=== PATIENT | male | born 1990 | race Caucasian/White ===

== ENCOUNTER 2017-07-12 16:15 | Inpatient (IN) ==
[2017-07-12] MEDS ORDERED: 0.9 % Sodium Chloride 1,000 ML IVC ONE ×2 (16:37→20:51)
[2017-07-12] MEDS ORDERED: Ondansetron 4 MG/2 ML VIAL IVP ONE (16:37)
[2017-07-12 16:56] LABS: Basophils % 0.2 %; Eosinophils % 0.1 %; Hematocrit 50.4 % (37.5-50.1); Hemoglobin 17.5 g/dL (12.9-16.9); Immature Granulocytes % 0.3 % (0-4); Lymphocytes # 0.5 K/mcL (0.6-4.6); Lymphocytes % 2.8 %; Mean Corpuscular HGB Conc 34.7 g/dL (31.6-35.5); Mean Corpuscular Hemoglobin 30.7 pg (28.0-33.3); Mean Corpuscular Volume 88.4 fL (83.0-100.0); Mean Platelet Volume 9.1 fL (9.4-12.4); Neutrophils # 14.7 K/mcL (1.6-8.9); Platelet Count 355 K/mcL (140-400); Red Cell Distribution Width 12.5 % (11.5-14.5); Segmented Neutrophils % 90.6 %
--- NOTE | 2017-07-12 17:01 | Emergency Department Note ---
Disposition Clinical Impression: Bowel obstruction Disposition: Admitted As Inpatient Condition: Fair Referrals: NONE,PCP [Primary Care Provider] - Forms: ED Satisfaction Letter, Work/School Release Time of Disposition: 20:56 Abdominal Pain HPI - General Chief Complaint: ED Abdominal Pain Stated Complaint: abdominal pain Time Seen by Provider: 07/12/17 16:31 Source: patient, family Nursing Notes Reviewed: Yes Vital Signs Reviewed: Yes - History of Present Illness HPI Narrative: Patient is a 26-year-old male with past medical history of Crohn's disease that presents for abdominal pain along with nausea and vomiting. Symptoms began this morning around 4 AM. He says his abdominal pain is located in the epigastric region, is nonradiating, intermittent, sharp in nature, and rates the pain as an 8 out of 10 at its worst. He said the pain is made worse with food and liquids. Patient denies any hematemesis. He denies any diarrhea, melena, or hematochezia. He admits to subjective fever along with chills. She denies any shortness of breath. He denies any recent travel. She denies any sick contacts at home. He denies any chest pain and says that she has shortness of breath only when his pain is at his worst. She denies any new medications. Denies any recent hospitalizations. Patient says that his last Crohn's flare up was 7-8 years ago. He says that he has not been taking his 6- mercaptopurine medication for the past 2 months. Pain Scale: 8 - Related Data Allergies Allergy/AdvReac Type Severity Reaction Status Date / Time infliximab [From Remicade] Allergy Anaphylaxis Verified 07/12/17 16:16 Constitutional: Reports: fever, chills. Denies: weakness Cardiovascular: Denies: chest pain, palpitations, dyspnea on exertion, edema, syncope Respiratory: Denies: cough, dyspnea, wheezes, hemoptysis, stridor Gastrointestinal: Reports: abdominal pain, nausea, vomiting, constipation (No BM today only. ). Denies: diarrhea, hematemesis, melena, hematochezia Genitourinary: Denies: urgency, dysuria, frequency, hematuria Abdominal Pain PMH - Past Medical History Medical history: Reports: other Male Surgical History: Reports: no surgical history Psychiatric history: Reports: no psych history - Social History Smoking status: Never smoker Alcohol use: Reports: none Drug use: Reports: none Physical Exam - General Limitations: no limitations General appearance: alert, in no apparent distress - Chest Chest inspection: Present: normal inspection, symmetric chest wall rise - Respiratory Respiratory exam: Present: normal lung sounds bilaterally. Absent: respiratory distress, wheezes, stridor - Cardiovascular Cardiovascular exam: Present: regular rate, normal rhythm, normal heart sounds, +S1, +S2. Absent: +S3, +S4 - Abdominal Exam Abdominal exam: Present: soft, tenderness, normal bowel sounds. Absent: distention, guarding, rebound, rigidity, Savage's sign, Rovsing's sign, tenderness at McBurney's Point Abdominal tenderness: Present: RUQ, RLQ, LUQ, LLQ, epigastrium - Extremities Exam Extremities exam: Present: normal inspection, full ROM, normal capillary refill. Absent: tenderness, pedal edema, calf tenderness Course Course Narrative: Patient appears to be dehydrated due to frequent vomiting. We will start him on fluid bolus. We will try to rule out pancreatitis, cholecystitis, appendicitis. Differential also includes viral gastroenteritis and crohns flare- up. Update 07/12/172038: Leukocytosis at 16.3. Patient is afebrile. Lipase was low making pancreatitis unlikely. Lactic acid was normal making infection less likely. Abdominal CT with contrast was done which showed possible obstruction to terminal ileum. Spoke to Dr. Maldonado from surgery who agreed to evaluate the patient. We are currently putting an NG tube for bowel decompression. Spoke to hospitalist Dr. Estrada who agreed to admit the patient. Abdomen/Pelvis CT 07/12/17 19:45 IMPRESSION: 1. Narrowing, thickening and inflammatory changes involving the terminal ileum over approximately 10 cm. No fistula. The findings are consistent with the patient's clinical history of Crohn's. Small bowel obstruction proximal to the involved segment with multiple distended fluid-filled small bowel loops. Small amount of ascites with interloop fluid collections. No free air. 2. There is a 1.3 x 1.7 cm fluid collection adjacent to the involved portion of the terminal ileum may represent a small abscess. 3. Colonic wall thickening with submucosal fat and very mild pericolonic inflammatory changes. D/ / 07/12/2017 20:12:07 Kamaljit Jc MD / Sarahi Cha Interpreting Provider: Kamaljit Jc MD Vital Signs Temperature 97.4 F L 07/12/17 16:17 Pulse Rate 119 07/12/17 16:17 Respiratory Rate 18 07/12/17 16:17 Blood Pressure 140/104 07/12/17 16:17 O2 Sat by Pulse Oximetry 99 07/12/17 16:17 Temperature 97.4 F L 07/12/17 16:17 Pulse Rate 134 07/12/17 20:46 Respiratory Rate 15 07/12/17 20:46 Blood Pressure 148/111 07/12/17 20:46 O2 Sat by Pulse Oximetry 98 07/12/17 20:46 Oxygen Delivery Oxygen Delivery Room Air Abdominal Pain - Lab Data Result diagrams: 07/12/17 16:47 07/12/17 16:47 Lab Results 07/12/17 07/12/17 07/12/17 Range/Units 16:47 16:47 16:47 WBC 16.3 H (4.3-11.1) K/mcL RBC 5.70 H (4.19-5.50) M/mcL Hgb 17.5 H (12.9-16.9) g/dL Hct 50.4 H (37.5-50.1) % MCV 88.4 (83.0-100.0) fL MCH 30.7 (28.0-33.3) pg MCHC 34.7 (31.6-35.5) g/dL RDW 12.5 (11.5-14.5) % Plt Count 355 (140-400) K/mcL MPV 9.1 L (9.4-12.4) fL Immature Gran % 0.3 (0-4) % Seg Neutrophils % 90.6 % Lymphocytes % 2.8 % Monocytes % 6.0 % Eosinophils % 0.1 % Basophils % 0.2 % Neutrophils # 14.7 H (1.6-8.9) K/mcL Lymphocytes # 0.5 L (0.6-4.6) K/mcL Monocytes # 1.0 (0.0-1.3) K/mcL Eosinophils # 0.0 (0.0-0.6) K/mcL Basophils # 0.0 (0.0-0.2) K/mcL Sodium 134 L (136-145) mEq/L Potassium 3.8 (3.5-5.1) mEq/L Chloride 98 (98-107) mEq/L Carbon Dioxide 25 (23-29) mEq/L BUN 14 (6-20) mg/dL Creatinine 1.11 (0.70-1.30) mg/dL Est GFR ( Amer) > 60 (> 60) Est GFR (Non-Af Amer) > 60 (> 60) BUN/Creatinine Ratio 13 (6-26) Glucose 126 H (70-105) mg/dL Calculated Osmolality 280 (280-300) Lactic Acid 1.2 (0.5-2.2) mmol/L Calcium 9.8 (8.6-10.3) mg/dL Total Bilirubin 1.1 H (0.3-1.0) mg/dL AST 30 (13-39) Units/L ALT 44 (7-52) Units/L Alkaline Phosphatase 105 H (34-104) Units/L Serum Total Protein 8.3 (6.4-8.9) g/dL Albumin 4.6 (3.5-5.7) g/dL Globulin 3.7 H (2.4-3.5) g/dL Albumin/Globulin Ratio 1.2 (1.1-2.2) Lipase 7 L (11-82) Units/L Urine Color (Yellow) Urine Clarity (Clear) Urine pH (5.0-8.0) pH Units Ur Specific [place] (1.010-1.025) Urine Protein (Neg-Trace) mg/dL Urine Glucose (UA) (Normal) mg/dL Urine Ketones (Negative) mg/dL Urine Blood (Negative) Urine Nitrite (Negative) Urine Bilirubin (Negative) Urine Urobilinogen (Normal) mg/dL Ur Leukocyte Esterase (Negative) Urine Microscopic RBC (0-3) per hpf Urine Microscopic WBC (0-3) per hpf Ur Squamous Epith Cells (None-Few) per lpf Urine Bacteria (None-Few) per hpf Hyaline Casts (None-Few) per lpf Ur Culture Indicated? (NO) 07/12/17 Range/Units 17:41 WBC (4.3-11.1) K/mcL RBC (4.19-5.50) M/mcL Hgb (12.9-16.9) g/dL Hct (37.5-50.1) % MCV (83.0-100.0) fL MCH (28.0-33.3) pg MCHC (31.6-35.5) g/dL RDW (11.5-14.5) % Plt Count (140-400) K/mcL MPV (9.4-12.4) fL Immature Gran % (0-4) % Seg Neutrophils % % Lymphocytes % % Monocytes % % Eosinophils % % Basophils % % Neutrophils # (1.6-8.9) K/mcL Lymphocytes # (0.6-4.6) K/mcL Monocytes # (0.0-1.3) K/mcL Eosinophils # (0.0-0.6) K/mcL Basophils # (0.0-0.2) K/mcL Sodium (136-145) mEq/L Potassium (3.5-5.1) mEq/L Chloride (98-107) mEq/L Carbon Dioxide (23-29) mEq/L BUN (6-20) mg/dL Creatinine (0.70-1.30) mg/dL Est GFR ( Amer) (> 60) Est GFR (Non-Af Amer) (> 60) BUN/Creatinine Ratio (6-26) Glucose (70-105) mg/dL Calculated Osmolality (280-300) Lactic Acid (0.5-2.2) mmol/L Calcium (8.6-10.3) mg/dL Total Bilirubin (0.3-1.0) mg/dL AST (13-39) Units/L ALT (7-52) Units/L Alkaline Phosphatase (34-104) Units/L Serum Total Protein (6.4-8.9) g/dL Albumin (3.5-5.7) g/dL Globulin (2.4-3.5) g/dL Albumin/Globulin Ratio (1.1-2.2) Lipase (11-82) Units/L Urine Color Dark Yellow (Yellow) Urine Clarity Clear (Clear) Urine pH 6.0 (5.0-8.0) pH Units Ur Specific [place] > 1.030 H (1.010-1.025) Urine Protein 100 H (Neg-Trace) mg/dL Urine Glucose (UA) Normal (Normal) mg/dL Urine Ketones >=160 H (Negative) mg/dL Urine Blood Trace H (Negative) Urine Nitrite Negative (Negative) Urine Bilirubin Small H (Negative) Urine Urobilinogen Normal (Normal) mg/dL Ur Leukocyte Esterase Negative (Negative) Urine Microscopic RBC 5-15 H (0-3) per hpf Urine Microscopic WBC 0-3 (0-3) per hpf Ur Squamous Epith Cells Many H (None-Few) per lpf Urine Bacteria None Seen (None-Few) per hpf Hyaline Casts None Seen (None-Few) per lpf Ur Culture Indicated? NO (NO) - Radiology Data Radiology results reviewed: Yes I reviewed the patient's radiology results.
[2017-07-12 17:18] LABS: Alanine Aminotransferase 44 Units/L (7-52); Albumin 4.6 g/dL (3.5-5.7); Albumin/Globulin Ratio 1.2 (1.1-2.2); Alkaline Phosphatase 105 Units/L (34-104); Aspartate Amino Transferase 30 Units/L (13-39); BUN/Creatinine Ratio 13 (6-26); Bilirubin,Total 1.1 mg/dL (0.3-1.0); Blood Urea Nitrogen 14 mg/dL (6-20); Calcium 9.8 mg/dL (8.6-10.3); Carbon Dioxide 25 mEq/L (23-29); Chloride 98 mEq/L (98-107); Globulin 3.7 g/dL (2.4-3.5); Glucose 126 mg/dL (70-105); Lipase 7 Units/L (11-82); Osmolality,Calculated 280 (280-300); Potassium 3.8 mEq/L (3.5-5.1); Sodium 134 mEq/L (136-145); Total Protein 8.3 g/dL (6.4-8.9); eGFR For African Americans > 60 (> 60); eGFR For Non-African Americans > 60 (> 60)
[2017-07-12 17:51] LABS: Bilirubin,Urine Small (Negative); Blood,Urine Trace (Negative); Clarity,Urine Clear (Clear); Color,Urine Dark Yellow (Yellow); Glucose,Urine (UA) Normal (Normal); Ketones,Urine >=160 mg/dL (Negative); Leukocyte Esterase,Urine Negative (Negative); Nitrite,Urine Negative (Negative); Protein,Urine 100 mg/dL (Neg-Trace); Specific Gravity,Urine > 1.030 (1.010-1.025); Urobilinogen,Urine Normal (Normal)
[2017-07-12 17:54] LABS: Bacteria,Urine None Seen per hpf (None-Few); Hyaline Casts,Urine None Seen per lpf (None-Few); Squamous Epithelial Cell,Urine Many per lpf (None-Few); WBC,Urine 0-3 per hpf (0-3)
[2017-07-12] MEDS ORDERED: Isovue-370 500 ML INFUS..BTL IV ONE (18:07)
[2017-07-12] MEDS ORDERED: Tetracaine/Benzocaine/Butamben 200MG/SPRAY (100SPY/BOT) MM ONE (19:52)
[2017-07-12] MEDS ORDERED: Lidocaine Viscous Oral Soln 15 ML SOLUTION MM PRN (19:52)
[2017-07-12] MEDS ORDERED: Oxymetazoline Nasal SPRAY BOTTLE NS ONE (19:52)
[2017-07-12] MEDS ORDERED: *HR* FentaNYL (PF) 100 MCG/2 ML VIAL IVP ONE (19:52)
--- NOTE | 2017-07-12 21:34 | Emergency Department Note ---
Disposition Clinical Impression: Bowel obstruction Qualifiers: Intestinal obstruction type: unspecified Intestinal obstruction extent: unspecified extent Qualified Code(s): K56.609 - Unspecified intestinal obstruction, unspecified as to partial versus complete obstruction Crohn's disease Qualifiers: Gastrointestinal tract location: small intestine Digestive disease complication type: with intestinal obstruction Qualified Code(s): K50.012 - Crohn's disease of small intestine with intestinal obstruction Disposition: Admitted As Inpatient Condition: Fair Referrals: NONE,PCP [Primary Care Provider] - Forms: ED Satisfaction Letter, Work/School Release Time of Disposition: 22:12 General Adult HPI - General Chief complaint: ED Abdominal Pain Stated complaint: abdominal pain Time Seen by Provider: 07/12/17 16:31 Source: patient, family Limitations: no limitations - History of Present Illness Pain Scale: 8 - Related Data Allergies Allergy/AdvReac Type Severity Reaction Status Date / Time infliximab [From Remicade] Allergy Anaphylaxis Verified 07/12/17 16:16 Constitutional: Reports: fever, chills. Denies: weakness Cardiovascular: Denies: chest pain, palpitations, dyspnea on exertion, edema, syncope Respiratory: Denies: cough, dyspnea, wheezes, hemoptysis, stridor Gastrointestinal: Reports: abdominal pain, nausea, vomiting, constipation (No BM today only. ). Denies: diarrhea, hematemesis, melena, hematochezia Genitourinary: Denies: urgency, dysuria, frequency, hematuria Past Medical History - Past Medical History Medical history: Reports: other Psychiatric history: Reports: no psych history - Social History Smoking Status: Never smoker Smokeless Tobacco Status: No Alcohol use: Reports: none Drug use: Reports: none Physical Exam - General Limitations: no limitations General appearance: alert, in no apparent distress Course Vital Signs Temperature 97.4 F L 07/12/17 16:17 Pulse Rate 119 07/12/17 16:17 Respiratory Rate 18 07/12/17 16:17 Blood Pressure 140/104 07/12/17 16:17 O2 Sat by Pulse Oximetry 99 07/12/17 16:17 Temperature 97.4 F L 07/12/17 16:17 Pulse Rate 132 07/12/17 21:48 Respiratory Rate 18 07/12/17 21:48 Blood Pressure 131/92 07/12/17 21:48 O2 Sat by Pulse Oximetry 95 07/12/17 21:48 Oxygen Delivery Oxygen Delivery Room Air Medical Decision Making - Lab Data Result diagrams: 07/12/17 16:47 07/12/17 16:47 Lab Results 07/12/17 07/12/17 07/12/17 Range/Units 16:47 16:47 16:47 WBC 16.3 H (4.3-11.1) K/mcL RBC 5.70 H (4.19-5.50) M/mcL Hgb 17.5 H (12.9-16.9) g/dL Hct 50.4 H (37.5-50.1) % MCV 88.4 (83.0-100.0) fL MCH 30.7 (28.0-33.3) pg MCHC 34.7 (31.6-35.5) g/dL RDW 12.5 (11.5-14.5) % Plt Count 355 (140-400) K/mcL MPV 9.1 L (9.4-12.4) fL Immature Gran % 0.3 (0-4) % Seg Neutrophils % 90.6 % Lymphocytes % 2.8 % Monocytes % 6.0 % Eosinophils % 0.1 % Basophils % 0.2 % Neutrophils # 14.7 H (1.6-8.9) K/mcL Lymphocytes # 0.5 L (0.6-4.6) K/mcL Monocytes # 1.0 (0.0-1.3) K/mcL Eosinophils # 0.0 (0.0-0.6) K/mcL Basophils # 0.0 (0.0-0.2) K/mcL Sodium 134 L (136-145) mEq/L Potassium 3.8 (3.5-5.1) mEq/L Chloride 98 (98-107) mEq/L Carbon Dioxide 25 (23-29) mEq/L BUN 14 (6-20) mg/dL Creatinine 1.11 (0.70-1.30) mg/dL Est GFR ( Amer) > 60 (> 60) Est GFR (Non-Af Amer) > 60 (> 60) BUN/Creatinine Ratio 13 (6-26) Glucose 126 H (70-105) mg/dL Calculated Osmolality 280 (280-300) Lactic Acid 1.2 (0.5-2.2) mmol/L Calcium 9.8 (8.6-10.3) mg/dL Total Bilirubin 1.1 H (0.3-1.0) mg/dL AST 30 (13-39) Units/L ALT 44 (7-52) Units/L Alkaline Phosphatase 105 H (34-104) Units/L Serum Total Protein 8.3 (6.4-8.9) g/dL Albumin 4.6 (3.5-5.7) g/dL Globulin 3.7 H (2.4-3.5) g/dL Albumin/Globulin Ratio 1.2 (1.1-2.2) Lipase 7 L (11-82) Units/L Urine Color (Yellow) Urine Clarity (Clear) Urine pH (5.0-8.0) pH Units Ur Specific [place] (1.010-1.025) Urine Protein (Neg-Trace) mg/dL Urine Glucose (UA) (Normal) mg/dL Urine Ketones (Negative) mg/dL Urine Blood (Negative) Urine Nitrite (Negative) Urine Bilirubin (Negative) Urine Urobilinogen (Normal) mg/dL Ur Leukocyte Esterase (Negative) Urine Microscopic RBC (0-3) per hpf Urine Microscopic WBC (0-3) per hpf Ur Squamous Epith Cells (None-Few) per lpf Urine Bacteria (None-Few) per hpf Hyaline Casts (None-Few) per lpf Ur Culture Indicated? (NO) 07/12/17 Range/Units 17:41 WBC (4.3-11.1) K/mcL RBC (4.19-5.50) M/mcL Hgb (12.9-16.9) g/dL Hct (37.5-50.1) % MCV (83.0-100.0) fL MCH (28.0-33.3) pg MCHC (31.6-35.5) g/dL RDW (11.5-14.5) % Plt Count (140-400) K/mcL MPV (9.4-12.4) fL Immature Gran % (0-4) % Seg Neutrophils % % Lymphocytes % % Monocytes % % Eosinophils % % Basophils % % Neutrophils # (1.6-8.9) K/mcL Lymphocytes # (0.6-4.6) K/mcL Monocytes # (0.0-1.3) K/mcL Eosinophils # (0.0-0.6) K/mcL Basophils # (0.0-0.2) K/mcL Sodium (136-145) mEq/L Potassium (3.5-5.1) mEq/L Chloride (98-107) mEq/L Carbon Dioxide (23-29) mEq/L BUN (6-20) mg/dL Creatinine (0.70-1.30) mg/dL Est GFR ( Amer) (> 60) Est GFR (Non-Af Amer) (> 60) BUN/Creatinine Ratio (6-26) Glucose (70-105) mg/dL Calculated Osmolality (280-300) Lactic Acid (0.5-2.2) mmol/L Calcium (8.6-10.3) mg/dL Total Bilirubin (0.3-1.0) mg/dL AST (13-39) Units/L ALT (7-52) Units/L Alkaline Phosphatase (34-104) Units/L Serum Total Protein (6.4-8.9) g/dL Albumin (3.5-5.7) g/dL Globulin (2.4-3.5) g/dL Albumin/Globulin Ratio (1.1-2.2) Lipase (11-82) Units/L Urine Color Dark Yellow (Yellow) Urine Clarity Clear (Clear) Urine pH 6.0 (5.0-8.0) pH Units Ur Specific [place] > 1.030 H (1.010-1.025) Urine Protein 100 H (Neg-Trace) mg/dL Urine Glucose (UA) Normal (Normal) mg/dL Urine Ketones >=160 H (Negative) mg/dL Urine Blood Trace H (Negative) Urine Nitrite Negative (Negative) Urine Bilirubin Small H (Negative) Urine Urobilinogen Normal (Normal) mg/dL Ur Leukocyte Esterase Negative (Negative) Urine Microscopic RBC 5-15 H (0-3) per hpf Urine Microscopic WBC 0-3 (0-3) per hpf Ur Squamous Epith Cells Many H (None-Few) per lpf Urine Bacteria None Seen (None-Few) per hpf Hyaline Casts None Seen (None-Few) per lpf Ur Culture Indicated? NO (NO) Attestation Statement - Attestation Attestation: I examined this patient and my medical decision-making was reviewed with the Resident Physician. I agree with the documented findings, disposition and treatment plan as described except to the extent set forth below. 26-year-old male with history of Crohn's since the ED because of abdominal pain and vomiting. Symptoms have been evolving for the past couple days with abdominal bloating and nausea. No diarrhea. No fevers. No chest pain or dyspnea. No flank or back pain. Was not male in no apparent physiologic distress. Oropharynx is clear mucous membranes are dry. Neck supple. Chest is clear to auscultation bilaterally. Abdomen bowel sounds are present throughout. Abdomen is slightly distended and moderate tenderness to the upper abdomen. No rebound tenderness. No flank tenderness. He has leukocytosis with a white count 16,000. Electrolytes are unremarkable. CT of the abdomen consistent with a small bowel obstruction with moderate gastric distention as well. NG tube was placed and during placement he vomited about 800 mL of fluid. NG tube was in place for about 40 minutes and placement was confirmed by chest x- ray. However, there was very little drainage From This and This Was Creating A Lot Of Discomfort, Gagging and Vomiting so It Was Removed. Case was discussed with on-call surgeon Dr. Gu who will see him in consultation. He is admitted to medical service.
[2017-07-12] MEDS ORDERED: Ondansetron 4 MG/2 ML VIAL IVP PRN (21:50)
[2017-07-12] MEDS ORDERED: OXYCODONE Oral CONC 10 MG/0.5 ML ORAL.SYG SL PRN ×2 (21:50)
[2017-07-12] MEDS ORDERED: Naloxone 0.4 MG/ML INJ IVP PRN (21:50)
[2017-07-12] MEDS ORDERED: Piperacillin/Tazobactam 3.375 GM in 0.9 % Sodium Chloride Mini Bag 100 ML IVPB ONE (21:58)
--- NOTE | 2017-07-12 22:02 | Internal Med History&Physical ---
Date of Encounter: 07/12/17 Time of Encounter: 22:31 Internal Medicine - H&P: HPI Chief complaint: Abdominal pain Admitted From: Home Plans for Post Hospital Care: Home History of present illness: Mr. Jose is a 26 year old male past medical history of Crohn's disease diagnosed 10 years ago. He presented to the ER with complains of epigastric and RLQ abdominal pain along with nausea and vomiting. Symptoms began this morning, pain is non- radiating, intermittent, sharp in nature, colicky, 8/10 at onset (relieved at time of review) He said the pain is made worse with food and liquids. Patient denies any hematemesis. He denies any diarrhea, melena, or hematochezia. There is associated subjective fevers and chills. The patient reports his last bowel movement was the day, was normal. He denies chest pain, shortness of breath, leg swelling, no neurologic symptoms. No change in urinary habits. The patient reports anaphylaxis to Remicade several years ago, and has not been compliant with his immunosuppressive medication for a couple of months. His last colonoscopy was 10 years ago when he was diagnosed. Workup in the ER-tachycardic, dehydrated, Terminal myelitis with abscess and small bowel obstruction lipase was normal, lactic acid was normal patient had leukocytosis. NG tube placed in the ER drained 800 mL of GI evaluation, was removed due to patient discomfort. At time of review, he was comfortable and in no form of acute distress. Past Med Surg Social Fam HX - Past Medical History Medical history: other Psychiatric history: no psych history - Past Surgical History Surgical History: no surgical history - Social History Smoking Status: Never smoker Smokeless Tobacco Status: No Alcohol use: none Drug use: none Internal Medicine - H&P: Meds 3 Allergy/AdvReac Type Severity Reaction Status Date / Time infliximab [From Remicade] Allergy Anaphylaxis Verified 07/12/17 16:16 All Systems PM: A 10-system review of systems was performed and is negative for pertinent findings except as documented above in the HPI. - Constitutional Constitutional: as per HPI - EENT Eyes: as per HPI Ears: as per HPI Nose, mouth and throat: as per HPI - Cardiovascular Cardiovascular ROS IM: as per HPI - Respiratory Respiratory: as per HPI - Gastrointestinal Gastrointestinal: as per HPI - Musculoskeletal Musculoskeletal ROS IM: as per HPI - Integumentary Integumentary IM: as per HPI - Hematologic/Lymphatic Hematologic/Lymphatic: as per HPI - Constitutional Vitals: Temp Pulse Resp BP Pulse Ox 97.4 F L 132 18 131/92 95 07/12/17 16:17 07/12/17 21:48 07/12/17 21:48 07/12/17 21:48 07/12/17 21:48 General appearance: Present: A&O X 3, pleasant, no acute distress - Head Head exam: Present: atraumatic, normocephalic - Eye Eye exam: Present: PERRL, conjuntiva pink, sclera anicteric Pupils: Present: PERRL - Neck Neck exam general surgery: Present: supple, trachea midline. Absent: lymphadenopathy - Respiratory Respiratory exam: Present: CTAB. Absent: accessory muscle use, rales, rhonchi, wheezes - Cardiovascular Cardiovascular exam: Present: +S1, +S2, tachycardia (regular). Absent: diastolic murmur, gallop, rubs, systolic murmur - GI/Abdominal GI/Abdominal exam: Present: soft, no peritoneal signs. Absent: distended, guarding, normal bowel sounds, rebound, tenderness Additional comments: Bowel sounds are absent - Extremities Exam Extremities exam: Present: warm, radial pulses palpable and symmetrical. Absent : calf tenderness, cyanotic, pedal edema - Neurological Exam Neurological exam: Present: alert, CN II-XII intact, oriented X3, no focal deficits. Absent: pronater drift, facial droop, speech deficit - Skin Skin exam: Present: dry, intact Internal Med - H&P Results - Labs CBC & Chem 7: 07/12/17 16:47 07/12/17 16:47 Labs: Short CBC 07/12/17 Range/Units 16:47 WBC 16.3 H (4.3-11.1) K/mcL Hgb 17.5 H (12.9-16.9) g/dL Hct 50.4 H (37.5-50.1) % Plt Count 355 (140-400) K/mcL Neutrophils # 14.7 H (1.6-8.9) K/mcL BMP 07/12/17 16:47 Sodium 134 L Potassium 3.8 Chloride 98 Carbon Dioxide 25 BUN 14 Creatinine 1.11 Glucose 126 H Calcium 9.8 Liver Function 07/12/17 Range/Units 16:47 Total Bilirubin 1.1 H (0.3-1.0) mg/dL AST 30 (13-39) Units/L ALT 44 (7-52) Units/L Alkaline Phosphatase 105 H (34-104) Units/L Albumin 4.6 (3.5-5.7) g/dL Urine 07/12/17 Range/Units 17:41 Urine Color Dark Yellow (Yellow) Urine Clarity Clear (Clear) Urine pH 6.0 (5.0-8.0) pH Units Ur Specific [place] > 1.030 H (1.010-1.025) Urine Protein 100 H (Neg-Trace) mg/dL Urine Glucose (UA) Normal (Normal) mg/dL - Impressions ITS Impressions Abdomen/Pelvis CT 07/12/17 19:45 IMPRESSION: 1. Narrowing, thickening and inflammatory changes involving the terminal ileum over approximately 10 cm. No fistula. The findings are consistent with the patient's clinical history of Crohn's. Small bowel obstruction proximal to the involved segment with multiple distended fluid-filled small bowel loops. Small amount of ascites with interloop fluid collections. No free air. 2. There is a 1.3 x 1.7 cm fluid collection adjacent to the involved portion of the terminal ileum may represent a small abscess. 3. Colonic wall thickening with submucosal fat and very mild pericolonic inflammatory changes. D/ / 07/12/2017 20:12:07 Kamaljit Jc MD / Sarahi Cha Interpreting Provider: Kamaljit Jc MD KUB X-Ray 07/12/17 20:59 IMPRESSION: NG tube in place with tip in the region of the gastric antrum and side port in the body of the stomach D/ / Dale Montiel MD / Dale Montiel MD Interpreting Provider: Dale Montiel MD - Assessment and plan (1) Sepsis Current Visit: Yes Status: Acute Assessment and plan: see below Met sepsis criteria with tachycardia HR 120-140, Leukocytosis of 16,000 and crohn's ileitis with abscess Blood culture requested Lactate is normal Source of sepsis is intra-abdominal Start on Zosyn Hemodynamically stable continue iVF hydration Qualifiers: Sepsis type: sepsis due to unspecified organism Qualified Code(s): A41.9 - Sepsis, unspecified organism (2) Crohn's ileitis Current Visit: Yes Status: Acute Assessment and plan: Known hx of crohn's disease presented with acute onset abdominal pain, fever/ chills, nausea, vomiting Per ER, non-compliance with 6MP home med for several months CT findings: Narrowing, thickening and inflammatory changes involving the terminal ileum over approximately 10 cm. No fistula. The findings are consistent with the patient's clinical history of Crohn's. Small bowel obstruction proximal to the involved segment with multiple distended fluid- filled small bowel loops. Small amount of ascites with interloop fluid collections. No free air. There is a 1.3 x 1.7 cm fluid collection adjacent to the involved portion of the terminal ileum may represent a small abscess, and Colonic wall thickening with submucosal fat and very mild pericolonic inflammatory changes *Absent bowel sounds on exam, no rebound, no guarding *Solumedrol 125mg once, followed by 60mg q6hr *Consider Budesonide when patient starts to take po *NPO *NG tube was placed initially, removed by ER physician *Patent's abdomen is not acute, will hold off on NG placement for now *Pain control *IV Zosyn for broader coverage, as patient is septic *Presence of abscess collection without pneumperitoneum, small bowel obstruction -Surgery has been consulted *Routine GI evaluation prior to discharge *High risk condition with risk of rapid deterioration/gut perforation and peritonitis Qualifiers: Digestive disease complication type: with intestinal obstruction Qualified Code(s): K50.012 - Crohn's disease of small intestine with intestinal obstruction (3) Terminal ileitis with abscess Current Visit: Yes Status: Acute Assessment and plan: as above (4) Bowel obstruction Current Visit: Yes Status: Acute Assessment and plan: NPO IVF hydration Strict I/Os Serial abdominal exams Surgery-Dr. Snell has been consulted by the ED team Qualifiers: Intestinal obstruction type: unspecified Intestinal obstruction extent: unspecified extent Qualified Code(s): K56.609 - Unspecified intestinal obstruction, unspecified as to partial versus complete obstruction - Time Spent With Patient Total time spent is greater than 50% in coordination of care (as documented) at patient's floor/unit and/or counseling patient:
[2017-07-12] MEDS ORDERED: methylPREDNISolone 125 MG/2 ML VIAL IVP ONE (22:15)
[2017-07-13] MEDS: 0.9 % Sodium Chloride 1,000 ML IVC SCH ×2 (00:47→13:40)
[2017-07-13] MEDS: *HR* Enoxaparin 40 MG/0.4 ML SYRINGE SQ SCH (05:35)
[2017-07-13] MEDS: Piperacillin/Tazobactam 3.375 GM in 0.9 % Sodium Chloride Mini Bag 100 ML IVPB SCH ×3 (05:35→23:11)
[2017-07-13] MEDS: methylPREDNISolone 125 MG/2 ML VIAL IVP SCH ×3 (05:36→20:31)
[2017-07-13 06:41] LABS: Basophils % 0.2 %; Hematocrit 42.6 % (37.5-50.1); Immature Granulocytes % 0.3 % (0-4); Lymphocytes # 0.5 K/mcL (0.6-4.6); Lymphocytes % 5.6 %; Mean Corpuscular HGB Conc 34.5 g/dL (31.6-35.5); Mean Corpuscular Hemoglobin 30.6 pg (28.0-33.3); Mean Corpuscular Volume 88.8 fL (83.0-100.0); Mean Platelet Volume 9.2 fL (9.4-12.4); Monocytes # 0.1 K/mcL (0.0-1.3); Monocytes % 1.3 %; Platelet Count 316 K/mcL (140-400); Red Cell Distribution Width 12.9 % (11.5-14.5); Segmented Neutrophils % 92.6 %
[2017-07-13 06:42] LABS: Hemoglobin 14.7 g/dL (12.9-16.9)
[2017-07-13 06:59] LABS: BUN/Creatinine Ratio 15 (6-26); Blood Urea Nitrogen 15 mg/dL (6-20); Calcium 8.7 mg/dL (8.6-10.3); Carbon Dioxide 24 mEq/L (23-29); Chloride 107 mEq/L (98-107); Glucose 156 mg/dL (70-105); Magnesium 2.1 mg/dL (1.6-2.6); Osmolality,Calculated 288 (280-300); Potassium 4.1 mEq/L (3.5-5.1); Sodium 137 mEq/L (136-145); eGFR For African Americans > 60 (> 60); eGFR For Non-African Americans > 60 (> 60)
--- NOTE | 2017-07-13 11:15 | General Surgery Consult Note ---
<PernelldamasoJaylon - Last Filed: 07/13/17 16:31> Date of Encounter: 07/13/17 Time of Encounter: 09:45 Assessment and Plan (1) Terminal ileitis with abscess Current Visit: Yes Status: Acute Abscess on CT scan only measuring 1.3 x 1.7 cm secondary to crohn's ileitus. No necessary for surgical or IR intervention at this time. continue ABx od steroid per primary team and GI. (2) Bowel obstruction Current Visit: Yes Status: Acute Patient present with obstruction no BM since day before admission. Pain improved. Pt had a BM this morning after initial rounding. agree with advancement to clear liquid diet no need for intervention as obstruction has resolved. Qualifiers: Intestinal obstruction type: unspecified Intestinal obstruction extent: unspecified extent Qualified Code(s): K56.609 - Unspecified intestinal obstruction, unspecified as to partial versus complete obstruction (3) Crohn's disease Current Visit: Yes Status: Acute Patient with known hx of crohn's disease. Patient will need follow up with local GI for out patient management of crohn's Patient will need follow up colonoscopy GI on board. Qualifiers: Gastrointestinal tract location: small intestine Digestive disease complication type: with intestinal obstruction Qualified Code(s): K50.012 - Crohn's disease of small intestine with intestinal obstruction (4) Sepsis Current Visit: Yes Status: Acute Sepsis criteria based on WBC and tachycardia ileitus with abscess on CT scan WBC improved, tachycardia resolved, patient afebrile. continue abx and management per primary team. Qualifiers: Sepsis type: sepsis due to unspecified organism Qualified Code(s): A41.9 - Sepsis, unspecified organism History of Present Illness Consult date: 07/12/17 Reason for consult: abdominal pain (SBO 2/2 Crohn's Colitis, concern for possible abscess.) Requesting physician: Topher Nair History of present illness: 26 yo M c PMHx of Crohn's disease diagnosed aproximately 10 years ago eports to [facility] for 1 day of sharp intermittent epigastric and RLQ abdominal pain. Patient had nausea and vomiting yesterday. Pain was worse with eating and drinking. Patient deneis fever, Diarrhea, blood in vomit or stool. Pt's last colonoscopy was at diagnosis. LBM was day before admission. Patient received care for his Crohn's in [place]re he recently moved from. Pt was on mercaptopurine and was in process of tapering down on med but began to forget to take it more and more often. Has not taken for last 3 months. Pt has nto had a flare like this before since diagnosis. Pt had anaphylactic reaction to remicaide. Patient was found to be dehydrated, tachycardic, and Hypertensive upon presentation. Labs were notable for WBC 16.3, nl BMP, total bili 1.1, normal AST and ALT, ALk phos 105. normal protien and albumin. LA 1.[address] abd pelvis which showed: "1. Narrowing, thickening and inflammatory changes involving the terminal ileum over approximately 10 cm. No fistula. The findings are consistent with the patient's clinical history of Crohn's. Small bowel obstruction proximal to the involved segment with multiple distended fluid-filled small bowel loops. Small amount of ascites with interloop fluid collections. No free air. 2. There is a 1.3 x 1.7 cm fluid collection adjacent to the involved portion of the terminal ileum may represent a small abscess. 3. Colonic wall thickening with submucosal fat and very mild pericolonic inflammatory changes." Patient had NG tube placed in the ED, but was subsequently pulled do to patient discomfort, improvement of symptoms. Patient was started on Steroids, IV zosyn, IV hydration, oxycodone HCL oral concentrate for pain control Today patient feels much better. He hasn't passed gas or stool yet, but pain is much better nausea has resolved. Past Med Surg Social Fam HX - Past Medical History Medical history: other Psychiatric history: no psych history - Past Surgical History Surgical History: no surgical history - Social History Smoking Status: Never smoker Smokeless Tobacco Status: No Alcohol use: none Drug use: none Medications and Allergies Mercaptopurine [Purinethol] 50 mg PO DAILY 07/13/17 [History] Multivitamin [Multivitamins] 1 cap PO DAILY 07/13/17 [History] 3 Allergy/AdvReac Type Severity Reaction Status Date / Time infliximab [From Remicade] Allergy Anaphylaxis Verified 07/12/17 16:16 Review of Systems All systems PM: The remainder of the systems were reviewed and are negative General Surgery Exam Initial Vital Signs Temp Pulse Resp BP Pulse Ox 97.4 F L 119 18 140/104 99 07/12/17 16:17 07/12/17 16:17 07/12/17 16:17 07/12/17 16:17 07/12/17 16:17 - General physical appearance well developed, well nourished, no distress - Eyes normal ocular movement - ENT normal mucosa - Neck trachea midline - Respiratory normal expansion, normal respiratory effort, clear to auscultation - Cardiovascular Cardiovascular exam: Present: RRR, no murmurs/rubs/gallops - Abdomen Abdomen general surgery: Present: bowel sounds present (hypoactive), soft, non tender. Absent: distended, guarding, rebound - Integumentary Integumentary general surgery: Present: warm and dry, no abnormal pigmentation - Neurologic Present: CN 2-12 grossly intact - Musculoskeletal Present: normal posture - Psychiatric Psychiatric general surgery: Present: A&Ox3, appropriate, speech is normal, memory intact Exam Initial Vital Signs Temp Pulse Resp BP Pulse Ox 97.4 F L 119 18 140/104 99 07/12/17 16:17 07/12/17 16:17 07/12/17 16:17 07/12/17 16:17 07/12/17 16:17 Results - Labs 07/13/17 06:31 07/13/17 06:31 Abnormal lab results MPV 9.2 fL (9.4-12.4) L 07/13/17 06:31 Neutrophils # 9.0 K/mcL (1.6-8.9) H 07/13/17 06:31 Lymphocytes # 0.5 K/mcL (0.6-4.6) L 07/13/17 06:31 Glucose 156 mg/dL (70-105) H 07/13/17 06:31 POC Glucose 125 mg/dL (70-99) H 07/13/17 05:33 Total Bilirubin 1.1 mg/dL (0.3-1.0) H 07/12/17 16:47 Alkaline Phosphatase 105 Units/L (34-104) H 07/12/17 16:47 Globulin 3.7 g/dL (2.4-3.5) H 07/12/17 16:47 Lipase 7 Units/L (11-82) L 07/12/17 16:47 Ur Specific [place] > 1.030 (1.010-1.025) H 07/12/17 17:41 Urine Protein 100 mg/dL (Neg-Trace) H 07/12/17 17:41 Urine Ketones >=160 mg/dL (Negative) H 07/12/17 17:41 Urine Blood Trace (Negative) H 07/12/17 17:41 Urine Bilirubin Small (Negative) H 07/12/17 17:41 Urine Microscopic RBC 5-15 per hpf (0-3) H 07/12/17 17:41 Ur Squamous Epith Cells Many per lpf (None-Few) H 07/12/17 17:41 Diabetes panel 07/13/17 Range/Units 06:31 Sodium 137 (136-145) mEq/L Potassium 4.1 (3.5-5.1) mEq/L Chloride 107 (98-107) mEq/L Carbon Dioxide 24 (23-29) mEq/L BUN 15 (6-20) mg/dL Creatinine 0.98 (0.70-1.30) mg/dL Glucose 156 H (70-105) mg/dL Calcium 8.7 (8.6-10.3) mg/dL Calcium panel 07/13/17 Range/Units 06:31 Calcium 8.7 (8.6-10.3) mg/dL Pituitary panel 07/13/17 Range/Units 06:31 Sodium 137 (136-145) mEq/L Potassium 4.1 (3.5-5.1) mEq/L Chloride 107 (98-107) mEq/L Carbon Dioxide 24 (23-29) mEq/L BUN 15 (6-20) mg/dL Creatinine 0.98 (0.70-1.30) mg/dL Glucose 156 H (70-105) mg/dL Calcium 8.7 (8.6-10.3) mg/dL Adrenal panel 07/13/17 Range/Units 06:31 Sodium 137 (136-145) mEq/L Potassium 4.1 (3.5-5.1) mEq/L Chloride 107 (98-107) mEq/L Carbon Dioxide 24 (23-29) mEq/L BUN 15 (6-20) mg/dL Creatinine 0.98 (0.70-1.30) mg/dL Glucose 156 H (70-105) mg/dL Calcium 8.7 (8.6-10.3) mg/dL All other labs normal. Consult Discharge Plan - Plan Referrals: NONE,PCP [Primary Care Provider] - <Jaxson Gu - Last Filed: 07/13/17 17:06> Date of Encounter: 07/13/17 Review of Systems All systems PM: The remainder of the systems were reviewed and are negative General Surgery Exam Initial Vital Signs Temp Pulse Resp BP Pulse Ox 97.4 F L 119 18 140/104 99 07/12/17 16:17 07/12/17 16:17 07/12/17 16:17 07/12/17 16:17 07/12/17 16:17 Exam Initial Vital Signs Temp Pulse Resp BP Pulse Ox 97.4 F L 119 18 140/104 99 07/12/17 16:17 07/12/17 16:17 07/12/17 16:17 07/12/17 16:17 07/12/17 16:17 Results - Labs 07/13/17 06:31 07/13/17 06:31 Abnormal lab results MPV 9.2 fL (9.4-12.4) L 07/13/17 06:31 Neutrophils # 9.0 K/mcL (1.6-8.9) H 07/13/17 06:31 Lymphocytes # 0.5 K/mcL (0.6-4.6) L 07/13/17 06:31 Glucose 156 mg/dL (70-105) H 07/13/17 06:31 POC Glucose 120 mg/dL (70-99) H 07/13/17 11:18 Total Bilirubin 1.1 mg/dL (0.3-1.0) H 07/12/17 16:47 Alkaline Phosphatase 105 Units/L (34-104) H 07/12/17 16:47 Globulin 3.7 g/dL (2.4-3.5) H 07/12/17 16:47 Lipase 7 Units/L (11-82) L 07/12/17 16:47 Ur Specific [place] > 1.030 (1.010-1.025) H 07/12/17 17:41 Urine Protein 100 mg/dL (Neg-Trace) H 07/12/17 17:41 Urine Ketones >=160 mg/dL (Negative) H 07/12/17 17:41 Urine Blood Trace (Negative) H 07/12/17 17:41 Urine Bilirubin Small (Negative) H 07/12/17 17:41 Urine Microscopic RBC 5-15 per hpf (0-3) H 07/12/17 17:41 Ur Squamous Epith Cells Many per lpf (None-Few) H 07/12/17 17:41 Diabetes panel 07/13/17 Range/Units 06:31 Sodium 137 (136-145) mEq/L Potassium 4.1 (3.5-5.1) mEq/L Chloride 107 (98-107) mEq/L Carbon Dioxide 24 (23-29) mEq/L BUN 15 (6-20) mg/dL Creatinine 0.98 (0.70-1.30) mg/dL Glucose 156 H (70-105) mg/dL Calcium 8.7 (8.6-10.3) mg/dL Calcium panel 07/13/17 Range/Units 06:31 Calcium 8.7 (8.6-10.3) mg/dL Pituitary panel 07/13/17 Range/Units 06:31 Sodium 137 (136-145) mEq/L Potassium 4.1 (3.5-5.1) mEq/L Chloride 107 (98-107) mEq/L Carbon Dioxide 24 (23-29) mEq/L BUN 15 (6-20) mg/dL Creatinine 0.98 (0.70-1.30) mg/dL Glucose 156 H (70-105) mg/dL Calcium 8.7 (8.6-10.3) mg/dL Adrenal panel 07/13/17 Range/Units 06:31 Sodium 137 (136-145) mEq/L Potassium 4.1 (3.5-5.1) mEq/L Chloride 107 (98-107) mEq/L Carbon Dioxide 24 (23-29) mEq/L BUN 15 (6-20) mg/dL Creatinine 0.98 (0.70-1.30) mg/dL Glucose 156 H (70-105) mg/dL Calcium 8.7 (8.6-10.3) mg/dL All other labs normal. - Attending Attestation I have personally seen and examined the patient. I have reviewed pertinent labs , imaging, progress notes, including this one. I agree with the above assessment and plan and wish to include the following... 26M h/o Crohn's now with flare with associated obstruction and abscess; currently HDS, non septic; minimal pain on exam; recommend consult to GI for management of Crohn's; will also need c-scopy; can be done as outpt; no acute surgery;
--- NOTE | 2017-07-13 13:09 | Internal Med Progress Note ---
Date of Encounter: 07/13/17 Time of Encounter: 11:30 - Assessment and plan (1) Sepsis Current Visit: Yes Status: Acute Assessment and plan: Met sepsis criteria with tachycardia HR 120-140, Leukocytosis of 16,000 and crohn's ileitis with abscess Blood culture - P cont empirical abx Zosyn Cont IVF hydration Qualifiers: Sepsis type: sepsis due to unspecified organism Qualified Code(s): A41.9 - Sepsis, unspecified organism (2) Bowel obstruction Current Visit: Yes Status: Acute Assessment and plan: Cont NPO off the NG tube Had BM this morning will check with surgery to start pt on ice chips / sips of water today IVF hydration Strict I/Os Qualifiers: Intestinal obstruction type: unspecified Intestinal obstruction extent: unspecified extent Qualified Code(s): K56.609 - Unspecified intestinal obstruction, unspecified as to partial versus complete obstruction (3) Crohn's ileitis Current Visit: Yes Status: Acute Assessment and plan: Improving cont empirical abx Zosyn Since his abd pain improved will cut back on steroids GI on board Qualifiers: Digestive disease complication type: with intestinal obstruction Qualified Code(s): K50.012 - Crohn's disease of small intestine with intestinal obstruction (4) Terminal ileitis with abscess Current Visit: Yes Status: Acute Assessment and plan: Reviewed CT of Abd - small fluid collection around the terminal ileum area Concerned for abscess cont empirical abx surgery on board - Time Spent With Patient Total time spent is greater than 50% in coordination of care (as documented) at patient's floor/unit and/or counseling patient: - Subjective Interval history: Mr. Jose is a 26 year old male past medical history of Crohn's disease diagnosed when he was 17 y/o, currently on Mercaptopurine and immuno suppressive therapu, who did not have any flare ups with in last 10 yrs, follows at [facility] now presented to our ER with complains of epigastric and RLQ abdominal pain along with nausea and vomiting. His CT of Abd showed terminal ileitis, small bowel obstruction and a small fluid collection 1.3 x 1.7 cm around terminal ileum area. Pt is off the NG tube. He denied any more abdominal pain. Had loose watery BM today. - Constitutional Vitals: Temp Pulse Resp BP Pulse Ox 98.1 F 86 16 116/72 97 07/13/17 11:12 07/13/17 11:12 07/13/17 11:12 07/13/17 11:12 07/13/17 11:12 General appearance: Present: A&O X 3, pleasant, no acute distress - Head Head exam: Present: atraumatic, normal inspection - Neck Neck exam general surgery: Present: supple - Respiratory Respiratory exam: Present: CTAB. Absent: respiratory distress, rhonchi, wheezes - Cardiovascular Cardiovascular exam: Present: RRR, +S1, +S2. Absent: systolic murmur - GI/Abdominal GI/Abdominal exam: Present: hypoactive bowel sounds, soft. Absent: distended, rebound, rigid, tenderness - Extremities Exam Extremities exam: Absent: calf tenderness, pedal edema, tenderness - Back Exam Back exam: Absent: CVA tenderness (L), CVA tenderness (R) - Psychiatric Psychiatric exam: Present: normal affect, normal mood Internal Medicine: Result - Labs CBC & Chem 7: 07/13/17 06:31 07/13/17 06:31 Labs: Short CBC 07/13/17 Range/Units 06:31 WBC 9.7 (4.3-11.1) K/mcL Hgb 14.7 D (12.9-16.9) g/dL Hct 42.6 (37.5-50.1) % Plt Count 316 (140-400) K/mcL Neutrophils # 9.0 H (1.6-8.9) K/mcL BMP 07/13/17 06:31 Sodium 137 Potassium 4.1 Chloride 107 Carbon Dioxide 24 BUN 15 Creatinine 0.98 Glucose 156 H Calcium 8.7 Consult Discharge Plan - Plan Referrals: NONE,PCP [Primary Care Provider] -
[2017-07-14] MEDS: *HR* Enoxaparin 40 MG/0.4 ML SYRINGE SQ SCH (06:12)
[2017-07-14] MEDS: Piperacillin/Tazobactam 3.375 GM in 0.9 % Sodium Chloride Mini Bag 100 ML IVPB SCH (06:14)
[2017-07-14] MEDS: methylPREDNISolone 125 MG/2 ML VIAL IVP SCH (07:16)
--- NOTE | 2017-07-14 11:48 | Discharge Summary ---
<Jeffrey Diana - Last Filed: 07/14/17 14:00> - NOTES TO OUTPATIENT PROVIDER Notes to Outpatient Provider: Patient reportedly stopped taking all medications because he felt better. This was restarted on this admission. Date of Encounter: 07/14/17 Time of Encounter: 10:00 - Discharge Diagnosis (1) Bowel obstruction Priority: Secondary Status: Acute Assessment and Plan: Resolved Qualifiers: Intestinal obstruction type: unspecified Intestinal obstruction extent: unspecified extent Qualified Code(s): K56.609 - Unspecified intestinal obstruction, unspecified as to partial versus complete obstruction (2) Sepsis Priority: Secondary Status: Acute Assessment and Plan: Met sepsis criteria with tachycardia HR 120-140, Leukocytosis of 16,000 and crohn's ileitis with abscess Blood culture - negative Home course of Cipro, Flagyl Tolerating oral diet Qualifiers: Sepsis type: sepsis due to unspecified organism Qualified Code(s): A41.9 - Sepsis, unspecified organism (3) Crohn's ileitis Priority: Primary Status: Acute Assessment and Plan: Improving Continue antibiotics, prednisone Follow-up with GI outpatient Qualifiers: Digestive disease complication type: with intestinal obstruction Qualified Code(s): K50.012 - Crohn's disease of small intestine with intestinal obstruction (4) Terminal ileitis with abscess Priority: Secondary Status: Acute Assessment and Plan: Reviewed CT of Abd - small fluid collection around the terminal ileum area Concerned for abscess cont empirical abx Hospital course: Mr. Jose is a 26 year old male with past medical history of Crohn's disease presents to emergency department with abdominal pain along with nausea and vomiting. He located in epigastric region, sharp in nature and made worse with foods or liquids. He does follow with a exhibits coordinator however approximately 2 months ago he started to wean himself off 6-mercaptopurine as his Crohn's has been well controlled up until this point. He was diagnosed at age 17 is been compliant with medication since. He has not had a recent colonoscopy since diagnosis. In the emergency room, vital signs significant for tachycardia with a rate of 119, otherwise within normal limits. Lab results significant for WBC of 16.3, elevated H/H at 17.5/50.4 consistent with dehydration, otherwise within normal limits including lactic acid 1.2. Abdominal CT showed inflammatory changes in the terminal ileum with small bowel shocks in proximal to this area as well as a 1.3 cm x 1.7 cm fluid collection which might represent a small abscess. He is admitted to medicine service for further evaluation and management of small bowel structured, Crohn's flare. During course hospital stay, patient gradually improved. He was started on Zosyn and methylprednisolone. NG tube was placed and he was hydrated with intravenous fluids. Gastroenterology was consulted during admission as well as surgery. Surgery decided with conservative measures including the NG tube and nothing by mouth diet for small bowel function. As patient's symptoms improve he was able to tolerate a clear liquid diet and then advanced to a soft diet without any further symptoms of nausea, vomiting, pain. NG tube was removed. We did discuss at length the importance of following up with his exhibits coordinator will continue his 6-mercaptopurine until he is able to follow up with his exhibits coordinator. We also discussed taking his diet slowly as couple days and advance as tolerated. He expressed an understanding to this. Lab results return to baseline levels and vital signs are stable. He is medically stable for discharge at this time. - Time Spent with Patient Total time spent providing and/or coordinating discharge services: - Discharge Medications Prescriptions: Ciprofloxacin HCl [Cipro] 500 mg PO BID #14 tablet Mercaptopurine [Purinethol] 50 mg PO DAILY #20 tablet metroNIDAZOLE [Flagyl] 500 mg PO BID #14 tablet predniSONE [PredniSONE] 40 mg PO DAILY #5 tablet Home Medications: Multivitamin [Multivitamins] 1 cap PO DAILY 07/13/17 [History] Ciprofloxacin HCl [Cipro] 500 mg PO BID #14 tablet 07/14/17 [Rx] Mercaptopurine [Purinethol] 50 mg PO DAILY #20 tablet 07/14/17 [Rx] metroNIDAZOLE [Flagyl] 500 mg PO BID #14 tablet 07/14/17 [Rx] predniSONE [PredniSONE] 40 mg PO DAILY #5 tablet 07/14/17 [Rx] Allergies/Adverse Reactions: 3 Allergy/AdvReac Type Severity Reaction Status Date / Time infliximab [From Remicade] Allergy Anaphylaxis Verified 07/12/17 16:16 Date of admission: 07/12/17 22:27 Primary care physician: PCP NONE Consults: 07/13/17 10:50 Consult to Gastroenterology [CONS] Routine Consulting Provider: Gastroenterology Madiha Reason for Consult: Crohn's flare versus bowel obstruction Call Completed: Yes Discharging clinician: Jeffrey Diana Anticipated date of discharge: 07/14/17 - Constitutional Vitals: Temp Pulse Resp BP Pulse Ox 97.9 F 85 15 115/69 97 07/14/17 10:49 07/14/17 10:49 07/14/17 10:49 07/14/17 10:49 07/14/17 10:49 General appearance: Present: A&O X 3, pleasant, no acute distress Exam: Gen.: Vitals noted. No acute distress. AAOx3 HEENT: PERRL/EOMI, oropharynx clear, Normocephalic, atraumatic, MMM Cardiac: RRR, no murmur, +S1/S2 Pulmonary: CTA bilaterally, no wheezes, rales or rhonchi, equal chest expansion Abdomen: soft, nontender, BS noted, no guarding, no rebound. Extremities: no BLE edema, nontender calf, no cyanosis or clubbing Neuro: A&Ox3, moves all extremities, no focal deficits Psych: Appropriate mood and behavior - Patient Status Disposition: Home, Self-Care Condition: Fair Functional capacity at discharge: independent ambulation Overall status at discharge: patient is progressing back to baseline - Discharge Instructions Instructions: Crohn Disease (DC), Bowel Obstruction (DC) Follow Up With: NONE,PCP [Primary Care Provider] - (Patient wishes to find his own primary care physician. Thank you) Additional Instructions: Follow-up appointments: If there is not an appointment listed below, please call your physician and schedule a follow-up appointment. If you have congestive heart failure and your symptoms return, make an appointment with your physician. Medication List: Carry an up to date list of medications you are taking at all time. We have given you an updated medication list including any new medications that you have been prescribed. Please provide that list to your primary provider Symptoms: If your condition changes or you experience any of the following symptoms, notify your physician immediately: Unusual or worsening pain, fever, persistent nausea and vomiting, bleeding, increase in swelling (especially in your legs), sudden weight gain, extreme dizziness, chest pain, increased drainage or redness from a wound or incision. Go to the emergency department if you experience a problem with breathing. Weights: If you have a history of swelling or shortness of breath, weigh yourself daily and notify your physician if you have a weight gain of two or more pounds in one day or 5 or more pounds in a week. If you experience any of the warning signs for stroke: Sudden numbness or weakness of the face, arm or leg; especially on one side of the body, sudden confusion, trouble speaking or understanding, sudden trouble seeing in one or both eyes, sudden trouble walking, dizziness, loss of balance or coordination, sudden sever headache with no cause; Call 911 or go to the emergency room. Stroke is a medical emergency. Some risk factors for stroke: Age, cigarette smoking, diabetes, excessive alcohol consumption, family history , high blood pressure, overweight, physical inactivity, prior stroke, heart attack, diagnosis of carotid artery stenosis or other artery disease. If you smoke, STOP: Smoking or tobacco use significantly increases your risk of heart and lung disease. Your chance of disease greatly increases if you continue to smoke. For more information, call the [employer] quit line for smoking cessation 6-695- QUIT-NOW ( ) - Diet and Activity Activity: increase activity as tolerated, resume usual activities as tolerated Diet: advance to your usual diet <Stephen Yao - Last Filed: 07/14/17 14:59> Date of Encounter: 07/14/17 - Discharge Diagnosis (1) Bowel obstruction Status: Acute Qualifiers: Intestinal obstruction type: unspecified Intestinal obstruction extent: unspecified extent Qualified Code(s): K56.609 - Unspecified intestinal obstruction, unspecified as to partial versus complete obstruction (2) Sepsis Status: Acute Qualifiers: Sepsis type: sepsis due to unspecified organism Qualified Code(s): A41.9 - Sepsis, unspecified organism (3) Crohn's ileitis Status: Acute Qualifiers: Digestive disease complication type: with intestinal obstruction Qualified Code(s): K50.012 - Crohn's disease of small intestine with intestinal obstruction (4) Terminal ileitis with abscess Status: Acute Hospital course: Mr. Jose is a 26 year old male - Time Spent with Patient Total time spent providing and/or coordinating discharge services: Date of admission: 07/12/17 22:27 Primary care physician: PCP NONE Consults: 07/13/17 10:50 Consult to Gastroenterology [CONS] Routine Consulting Provider: Gastroenterology Madiha Reason for Consult: Crohn's flare versus bowel obstruction Call Completed: Yes - Constitutional Vitals: Temp Pulse Resp BP Pulse Ox 97.9 F 85 15 115/69 97 07/14/17 10:49 07/14/17 10:49 07/14/17 10:49 07/14/17 10:49 07/14/17 10:49 - Attending Attestation I examined this patient and my medical decision-making was reviewed with the Resident Physician Dr. Diana. I agree with the documented findings, disposition and treatment plan as described except to the extent set forth below. Mr. Jose is a 26 year old male past medical history of Crohn's disease diagnosed when he was 17 y/o, currently on Mercaptopurine and immuno suppressive therapu, who did not have any flare ups with in last 10 yrs, follows at [facility] now presented to our ER with complains of epigastric and RLQ abdominal pain along with nausea and vomiting. His CT of Abd showed terminal ileitis, small bowel obstruction and a small fluid collection 1.3 x 1.7 cm around terminal ileum area. Pt denied any more abd pain and tolerating PO intake well. Gen: A, A, O x 3 Chest : Diminished BS b/l Abd: Soft, NT + BS+ a/p 1. Sepsis 2. Acute SBO 3. Acute crohn's ileitis 4. ?/ Ileal abscess / fluid collection Pt's symptoms resolved remained afebrile tolerating PO intake well cont PO steroids for another 5 days switched to PO Abx medically stable to d/c home
--- NOTE | 2017-07-14 11:54 | Gastroenterology Consult Note ---
<Debra Knowles - Last Filed: 07/14/17 11:50> Date of Encounter: 07/14/17 Time of Encounter: 10:30 - Assessment and plan (1) Crohn's ileitis Current Visit: Yes Status: Acute Assessment and plan: Pt currently on steroids and antibiotics is symptomatically better. Will follow as an outpatient, need colonoscopy when inflammation decreased. Qualifiers: Digestive disease complication type: with intestinal obstruction Qualified Code(s): K50.012 - Crohn's disease of small intestine with intestinal obstruction (2) Terminal ileitis with abscess Current Visit: Yes Status: Acute Assessment and plan: Seen by Gen surgery for abcess, is small, surgery not recommended. Continue antibiotics, colonoscopy as outpatient. - Time Spent With Patient Total time spent is greater than 50% in coordination of care (as documented) at patient's floor/unit and/or counseling patient: GI History of Present Illness - Data of Consult Patient: new to practice Consult date: 07/14/17 Requesting Physician: Ree Estrada MD - Consult Narrative Reason for consult: crohn's disease History of present illness: 26 yo male with a PMHx of Crohn's disease diagnosed at age [age] year old. He presents to [facility] for 1 day of sharp intermittent epigastric and RLQ abdominal pain. Patient had nausea and vomiting yesterday. Pain was worse with eating and drinking. Patient denies fever, Diarrhea, blood in vomit or stool. Pt's last colonoscopy was at diagnosis. LBM was day before admission. Patient received care for his Crohn's in [place] where he recently moved from. Pt was on mercaptopurine and was in process of tapering down, states he does not take every day, and has not taken in 3 months. He denies any flares or hospitalizations for Crohn's before. Pt had anaphylactic reaction to remicaide. Patient was found to be dehydrated, tachycardic, and Hypertensive upon presentation. CT abd pelvis showed: Narrowing, thickening and inflammatory changes involving the terminal ileum over approximately 10 cm. No fistula. The findings are consistent with the patient's clinical history of Crohn's. Small bowel obstruction proximal to the involved segment with multiple distended fluid-filled small bowel loops. Small amount of ascites with interloop fluid collections. No free air. There is a 1.3 x 1.7 cm fluid collection adjacent to the involved portion of the terminal ileum may represent a small abscess. Colonic wall thickening with submucosal fat and very mild pericolonic inflammatory changes. Patient had NG tube placed in the ED, but was subsequently pulled do to patient discomfort, improvement of symptoms. Patient was started on Steroids, IV zosyn, IV hydration, oxycodone HCL oral concentrate for pain control. He states he is feeling much better. He denies any rectal bleeding. He denies fever or chills. egd denies colon 2007 [place] [facility] NSAIDS none anticoagulants: Lovenox: 0600 Past Med Surg Social Fam HX - Past Medical History Medical history: other Psychiatric history: no psych history - Past Surgical History Surgical History: no surgical history - Social History Smoking Status: Never smoker Smokeless Tobacco Status: No Alcohol use: none Drug use: none Review of Systems: GI: as per [facility] GENERAL: denies fever or chills EYES: denies yellow discoloration ENT: denies pain with swallowing or difficulty swallowing CARDIO: denies chest pain, palpitations RESP: No Shortness of breath with exertion : denies change in color of urine NEURO: denies any weakness HEME: Denies any bruising MS: denies joint pain, joint swelling or back pain. DERM: denies rash or itching PSYCH: Denies history of anxiety or depression - Constitutional Vitals: Temp Pulse Resp BP Pulse Ox 97.9 F 85 15 115/69 97 07/14/17 10:49 07/14/17 10:49 07/14/17 10:49 07/14/17 10:49 07/14/17 10:49 Exam: CONSTITUTIONAL:~alert, no acute distress.~HEAD:~normocephalic.~EYES:~no jaundice.~NECK:~no obvious swelling.~HEART:~regular rate and rhythm, no murmurs. ~LUNGS:~bilateral good air entry.~ABDOMEN:~non distended, soft, mildly tender, no masses palpable, no organomegaly.~RECTAL EXAM:~Deferred.~EXTREMITIES:~no clubbing, cyanosis or edema.~SKIN:~no stigmata of chronic liver disease.~ NEUROLOGIC:~no obvious focal defect.~~~~ Results - Labs CBC & Chem 7: 07/13/17 06:31 07/13/17 06:31 Labs: Last Result Calcium 8.7 mg/dL (8.6-10.3) 07/13/17 06:31 Entire Visit Hgb 14.7 g/dL (12.9-16.9) D 07/13/17 06:31 Hct 42.6 % (37.5-50.1) 07/13/17 06:31 Total Bilirubin 1.1 mg/dL (0.3-1.0) H 07/12/17 16:47 AST 30 Units/L (13-39) 07/12/17 16:47 ALT 44 Units/L (7-52) 07/12/17 16:47 Lipase 7 Units/L (11-82) L 07/12/17 16:47 - Impressions Impressions KUB X-Ray 07/13/17 11:05 IMPRESSION: Slight worsening of proximal small bowel distention over 24 hours. Partial mechanical bowel obstruction is suspected. Nasogastric tube not identified and either removed or retracted into the esophagus. D/ / Fredi Asher MD / Fredi Asher MD Interpreting Provider: Fredi Asher MD Consult Discharge Plan - Plan Instructions: Crohn Disease (DC), Bowel Obstruction (DC) Additional Instructions: Follow-up appointments: If there is not an appointment listed below, please call your physician and schedule a follow-up appointment. If you have congestive heart failure and your symptoms return, make an appointment with your physician. Medication List: Carry an up to date list of medications you are taking at all time. We have given you an updated medication list including any new medications that you have been prescribed. Please provide that list to your primary provider Symptoms: If your condition changes or you experience any of the following symptoms, notify your physician immediately: Unusual or worsening pain, fever, persistent nausea and vomiting, bleeding, increase in swelling (especially in your legs), sudden weight gain, extreme dizziness, chest pain, increased drainage or redness from a wound or incision. Go to the emergency department if you experience a problem with breathing. Weights: If you have a history of swelling or shortness of breath, weigh yourself daily and notify your physician if you have a weight gain of two or more pounds in one day or 5 or more pounds in a week. If you experience any of the warning signs for stroke: Sudden numbness or weakness of the face, arm or leg; especially on one side of the body, sudden confusion, trouble speaking or understanding, sudden trouble seeing in one or both eyes, sudden trouble walking, dizziness, loss of balance or coordination, sudden sever headache with no cause; Call 911 or go to the emergency room. Stroke is a medical emergency. Some risk factors for stroke: Age, cigarette smoking, diabetes, excessive alcohol consumption, family history , high blood pressure, overweight, physical inactivity, prior stroke, heart attack, diagnosis of carotid artery stenosis or other artery disease. If you smoke, STOP: Smoking or tobacco use significantly increases your risk of heart and lung disease. Your chance of disease greatly increases if you continue to smoke. For more information, call the [employer] quit line for smoking cessation 3-108 QUIT-NOW ( ) Referrals: NONE,PCP [Primary Care Provider] - (Patient wishes to find his own primary care physician. Thank you) Prescriptions: Ciprofloxacin HCl [Cipro] 500 mg PO BID #14 tablet Mercaptopurine [Purinethol] 50 mg PO DAILY #20 tablet metroNIDAZOLE [Flagyl] 500 mg PO BID #14 tablet predniSONE [PredniSONE] 40 mg PO DAILY #5 tablet <César Guadalupe - Last Filed: 07/14/17 14:40> Date of Encounter: 07/14/17 Time of Encounter: 13:30 - Time Spent With Patient Total time spent is greater than 50% in coordination of care (as documented) at patient's floor/unit and/or counseling patient: GI History of Present Illness - Data of Consult Requesting Physician: Ree Estrada MD - Consult Narrative History of present illness: Mr. Jose is a 26 year old male - Constitutional Vitals: Temp Pulse Resp BP Pulse Ox 97.9 F 85 15 115/69 97 07/14/17 10:49 07/14/17 10:49 07/14/17 10:49 07/14/17 10:49 07/14/17 10:49 Results - Labs CBC & Chem 7: 07/13/17 06:31 07/13/17 06:31 Labs: Last Result Calcium 8.7 mg/dL (8.6-10.3) 07/13/17 06:31 Entire Visit Hgb 14.7 g/dL (12.9-16.9) D 07/13/17 06:31 Hct 42.6 % (37.5-50.1) 07/13/17 06:31 Total Bilirubin 1.1 mg/dL (0.3-1.0) H 07/12/17 16:47 AST 30 Units/L (13-39) 07/12/17 16:47 ALT 44 Units/L (7-52) 07/12/17 16:47 Lipase 7 Units/L (11-82) L 07/12/17 16:47 - Impressions Impressions KUB X-Ray 07/13/17 11:05 IMPRESSION: Slight worsening of proximal small bowel distention over 24 hours. Partial mechanical bowel obstruction is suspected. Nasogastric tube not identified and either removed or retracted into the esophagus. D/ / Fredi Asher MD / Fredi Asher MD Interpreting Provider: Fredi Asher MD - Attending Attestation I have personally performed a face to face evaluation on this patient. I have reviewed and agree with the care plan. History and Exam by me shows: Pt seen. Abdomen is soft no focal tenderness. Patient with a history of Crohn disease has been on 6-MP but has been taking it on and off. Admitted because of small bowel obstruction due to terminal ileal Crohn disease flare. Doing better since being treated with steroids and antibiotics. Rec; home on by mouth steroids with the slow taper. Patient will follow up with us outpatient and will be prepared to be started on biologic treatment
[2017-07-14 13:40] VITALS: BP 115/69
== END 2017-07-14 14:59 | disposition home or self-care (01) | DRG 872 ==
LOC: EMEROO 16:15 → 3ANU 22:27
PROVIDERS: ADMIT Internal Medicine; ATTEND Internal Medicine